=== PATIENT | female | born 1985 | race Hispanic/Latino ===

== ENCOUNTER 2024-05-20 09:25 | Outpatient (CLI) | payer OTHER, SELFPAY ==
[2024-05-20 10:52] LABS: Hemoglobin A1C 5.8 % (<5.7)
== END 2024-05-20 09:26 | disposition home or self-care (01) ==
PROVIDERS: Visit Provider Obstetrics & Gynecology Gynecology
DX: N91.2 Amenorrhea, unspecified (principal)
CPT/HCPCS: 36415; 83036

== ENCOUNTER 2024-06-17 09:58 | Outpatient (CLI) | payer OTHER, SELFPAY ==
[2024-06-17 10:27] LABS: Alanine Aminotransferase 87 U/L (6-35); Albumin Level 4.7 g/dL (3.5-5.1); Alkaline Phosphatase 119 U/L (38-126); Anion Gap 4 mmol/L (4-12); Aspartate Amino Transferase 74 U/L (14-36); Bilirubin,Total 0.5 mg/dL (0.2-1.3); Blood Urea Nitrogen 10 mg/dL (7-17); Calcium 8.8 mg/dL (8.4-10.2); Carbon Dioxide 28 mmol/L (22-30); Chloride 107 mmol/L (98-107); Cholesterol 214 mg/dL (0-200); Estimated Glomerular Filt Rate > 60; Glucose 95 mg/dL (65-110); HDL Direct 56 mg/dL; Potassium 4.1 mmol/L (3.4-5.0); Sodium 139 mmol/L (137-145); Triglycerides 171 mg/dL (<150)
[2024-06-17 10:39] LABS: LDL Cholesterol Direct 115 mg/dL
[2024-06-20 09:14] LABS: Progesterone <0.5 ng/mL
[2024-06-21 15:32] LABS: Zinc 74 mcg/dL (60-130)
== END 2024-06-17 09:59 | disposition home or self-care (01) ==
LOC: ANHLAB 10:00
PROVIDERS: Visit Provider Nurse Practitioner Women's Health
DX: E28.2 Polycystic ovarian syndrome (principal)
CPT/HCPCS: 36415; 80053; 80061; 84144; 84630

== ENCOUNTER 2025-01-22 10:27 | Outpatient (CLI) | payer OTHER, SELFPAY ==
--- NOTE | ~2025-01-22 | XR_ITS ---
Right foot Technique: AP, oblique, and lateral views were obtained. Clinical History: Arthritis Findings: No acute fracture or dislocation is seen. Osseous alignment is anatomic. Joint spaces are p reserved without erosive or degenerative change. Soft tissues are unremarkable. Impression: Unremarkable right foot radiographs. Reviewed, dictated and finalized at location . Impression: Unremarkable right foot radiographs.
--- NOTE | ~2025-01-22 | XR_ITS ---
Left Hand Technique: PA, oblique, and lateral views were obtained. Clinical History: Arthritis Findings: No acute fracture or dislocation is seen. Osseous alignment is anatomic. Joint spaces are p reserved. Soft tissues are unremarkable. Impression: Unremarkable left hand. Reviewed, dictated and finalized at location M. Impression: Unremarkable left hand.
--- NOTE | ~2025-01-22 | XR_ITS ---
Right Hand Technique: PA, oblique, and lateral views were obtained. Clinical History: Arthritis Findings: No acute fracture or dislocation is seen. Osseous alignment is anatomic. Joint spaces are p reserved. Soft tissues are unremarkable. Impression: Unremarkable right hand. Reviewed, dictated and finalized at location M. Impression: Unremarkable right hand.
--- NOTE | ~2025-01-22 | XR_ITS ---
Left foot Technique: AP, oblique, and lateral views were obtained. Clinical History: Arthritis Findings: No acute fracture or dislocation is seen. Osseous alignment is anatomic. Joint spaces are p reserved without erosive or degenerative change. Soft tissues are unremarkable. Impression: Unremarkable left foot radiographs. Reviewed, dictated and finalized at location . Impression: Unremarkable left foot radiographs.
--- OUTSIDE RECORDS SUMMARY | 2025-01-22 10:33 | XMS_ITS | Data Portability ---
Author Organization [facility] NBAWilli Patterson Address [address] [place] [address] Care Team Providers Care Avionics Installer Name Role Phone RICHY, JENNIFER Primary Care Provider [phone] Assessment No assessment recorded. Plan of Treatment Reminders Order Date Submit Date Provider Last Modified By Organization Details Last Modified Time Details Appointments None recorded. Lab CMP, serum or plasma 2019 020 [facility], [address], [address], [place], [address], 0 06:11:28 test, urine 2019 020 [email or web address] In-Office Order, Internal Use Only DO Not Attach Compendium DO Not Attach Compendium, Do Not Delete/merge, [id number] 0 09:14:46 HCG, intact + beta subunit, quant, serum or plasma 2019 020 [facility], [address], [place], [address], 0 06:11:31 lh + FSH, serum 2019 020 [facility], [address], [address], [place], [address], 0 06:11:29 TSH, ultra-sen sitive, serum 2019 020 [facility], [address] [facility], [address], [place], [address], 0 06:11:32 testoster one, total, serum 2019 020 [facility] (Centralized Electronic Ordering - All Locations), Patient Can Go To The Location Of Their Choice, 0 06:11:30 HbA1c (hemoglob in A1c), blood 2019 020 [facility], [address], [place], [address], 0 06:11:29 vitamin D, 25-hydrox y, total, serum 2019 [facility], [address], [place], [address], 0 06:11:31 test, urine 2018 019 [email or web address] In-Office Order, Internal Use Only DO Not Attach Compendium DO Not Attach Compendium, Do Not Delete/merge, 9 18:39:39 pap, IG + HPV, cervical 2018 019 [facility], [address] [facility] [address] [facility], [address], [place], [address], 9 20:07:29 urinalysi s, dipstick 2018 [facility], Internal Use Only DO Not Attach Compendium DO Not Attach Compendium, Do Not Delete/merge, 9 18:39:39 bacterial vaginosis panel, vaginal 2018 019 [facility] - [facility]), Patient Can Go To The Location Of Their Choice, [address] 9 06:05:50 culture, vaginal/r ectal, streptoco ccus group B 2018 019 [facility] (Centralized Electronic Ordering - All Locations), Patient Can Go To The Location Of Their Choice, [address] 9 06:05:50 pap, IG + HPV, cervical 2014 015 [facility], [address], [address], [place], [place], [address], 5 06:10:31 bacterial vaginosis + vaginitis panel, vaginal 2014 015 [facility], [address], [address], [place], [address], 5 20:15:25 HSV (1+2) DNA, qual, PCR, unspecifi ed specimen 2014 015 [facility], [address], [address], [place], [place], [address], 5 20:15:25 culture, vaginal/r ectal, streptoco ccus group B 2014 015 [facility], [address], [address], [place], [address], 5 20:15:25 test, urine 2014 015 [email or web address] In-Office Order, Internal Use Only DO Not Attach Compendium DO Not Attach Compendium, Do Not Delete/merge, [id number] 5 16:26:42 TSH, serum or plasma 2014 015 [email or web address] [facility], [address], [address], [place], [address], 5 09:24:52 testoster one, total, serum 2014 015 [email or web address] [facility], [address], [address], [place], [address], 5 09:24:52 dhea-sulf ate, serum 2014 015 [facility], [address], [address], [place], [address], 5 10:50:29 lipid panel, serum 2014 015 [facility], [address], [address], [place], [address], 5 10:50:28 HbA1c (hemoglob in A1c), blood 2014 015 [facility], [address], [address], [place], [address], 5 10:50:29 CMP, serum or plasma 2014 015 [facility], [address] [facility] [address], [address], [place], [address], 5 10:50:28 RPR (rapid plasma reagin), serum 2014 015 [facility], [address], [address], [place], [address], 5 10:50:28 hsv-2 (herpes simplex virus type 2) igg Ab, serum 2014 015 [facility] TRU[facility], [address] [facility] [address], [address], [place], [address], 5 10:50:28 hepatitis panel (A+B+C), acute, serum 2014 015 [facility], [address], [address], [place], [address], 5 10:50:28 hepatitis B surface Ab, qualitati ve, serum 2014 015 [facility], [address] [facility] [facility] [address] [facility] [address], [address], [place], [address], 5 10:50:28 HIV (1+O+2) Ab, serum 2014 015 [facility], [address] [facility] [facility] [address] [facility] [address], [address], [place], [address], 5 10:50:28 Referral infertili ty reproduct brandon endocrino logy referral 2015 016 [email or web address] Bruno Lancaster MD, [address] [facility] [address], [address], [place], [address], 6 16:52:01 Procedures None recorded. Surgeries None recorded. Imaging hysterosa lpingogra m [address] [facility] ([facility]), [address] [facility], [place], [address], 5 15:56:02 Medication Orders progester one micronize d 200 mg capsule 2019 020 [id number], [address], [place], [place], [id number], 0 17:27:08 metformin 500 mg tablet 2019 020 [facility], [address], [place], [place], [id number], 0 17:26:31 omeprazol e 20 mg capsule,d elayed release 2019 020 [facility], [address], [place], [place], [id number], 0 09:14:54 multivita min tablet 2018 019 [facility]19, [address], [place], [place], [id number], 0 08:46:42 Calcium with Vitamin D 600 mg-10 mcg (400 unit) tablet 2018 019 [facility]09621, [address], [place], [place], [id number], 0 08:46:28 letrozole 2.5 mg tablet [address] [facility], [address] [place] [address], [address], 9 16:59:07 metformin 500 mg tablet [address] [facility], [address] [place] [address], [address], 9 16:59:03 Vitamin tablet [address] [facility], [address] [place] [address], [address], 9 16:59:11 Prometriu m 200 mg capsule [address] [facility], [address] [place] [address], [address], 9 16:59:18 Patient TargetsNo targets recorded. 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 Referring Physician: Lv Thao, CARPENTRY SPECIALIST, Encounter Date: 12/16/2015 Results Created Date Observation Date Name Description Value Unit Range Abnormal Flag Note LastModifiedBy Organization Detail LastModifiedTime 03/28/2003/28/2019 urina lysis , dipst ick Leukocytes Negati ve Not Available In-Office Order Internal Use Only DO Not Attach Compendium DO Not Attach Compendium, Do Not Delete/merge, 03/28/2019 14:26:15 03/28/2003/28/2019 urina lysis , dipst ick Nitrite negati ve Not Available In-Office Order Internal Use Only DO Not Attach Compendium DO Not Attach Compendium, Do Not Delete/merge, 03/28/2019 14:26:15 03/28/2003/28/2019 urina lysis , dipst ick Urobilinogen .2 Not Available In-Of fice Order Internal Use Only DO Not Attach Compendium DO Not Attach Compendium, Do Not Delete/merge, 03/28/2019 14:26:15 03/28/2003/28/2019 urina lysis , dipst ick Protein Negati ve Not Available In-Office Order Internal Use Only DO Not Attach Compendium DO Not Attach Compendium, Do Not Delete/merge, 03/28/2019 14:26:15 03/28/2003/28/2019 urina lysis , dipst ick pH 6.0 Not Available In-Office Order Internal Use Only DO Not Attach Compendium DO Not Attach Compendium, Do Not Delete/merge, 03/28/2019 14:26:15 03/28/2003/28/2019 urina lysis , dipst ick Blood Hemoly zed: Trace Not Available In-Office Order Internal Use Only DO Not Attach Compendium DO Not Attach Compendium, Do Not Delete/merge, 03/28/2019 14:26:15 03/28/2003/2803/28/2019 urina lysis , dipst ick Specific Compton 1.010 Not Available In-Off ice Order Internal Use Only DO Not Attach Compendium DO Not Attach Compendium, Do Not Delete/merge, [id number] 03/28/2019 14:26:15 03/28/20 19 03/28/2019 urina lysis , dipst ick Ketone Negati ve Not Available In-Office Order Internal Use Only DO Not Attach Compendium DO Not Attach Compendium, Do Not Delete/merge, [facility] 03/28/2019 14:26:15 03/28/20 19 03/28/2019 urina lysis , dipst ick Bilirubin Negati ve Not Available In-Office Order Internal Use Only DO Not Attach Compendium DO Not Attach Compendium, Do Not Delete/merge, [facility] 03/28/2019 14:26:15 03/28/20 19 03/28/2019 urina lysis , dipst ick Glucose Negati ve Not Available In-Office Order Internal Use Only DO Not Attach Compendium DO Not Attach Compendium, Do Not Delete/merge, [facility] 03/28/2019 14:26:15 03/28/20 19 03/28/2019 pregn bryce test, urine HCG negati ve Not Available In-Office Order Internal Use Only DO Not Attach Compendium DO Not Attach Compendium, Do Not Delete/merge, [id number] 03/28/2019 14:26:00 02/15/20 15 02/14/2015 pregn bryce test, urine HCG negati ve Not Available In-Office Order Internal Use Only DO Not Attach Compendium DO Not Attach Compendium, Do Not Delete/merge, [id number] 02/14/2015 14:44:28 02/15/20 15 02/15/2015 HbA1c (hemo globi n A1c), blood hemoglobin A1C 5.3 % 4.8-5. 6 INCRE ASED RISK FOR DIABE THALIA: 5.7 - 6.4 DIABE THALIA: >6.4 GLYCE PJ CONTR OL FOR ADULT S WITH DIABE THALIA: <7.0 Not Available [facility] ([facility]) [address] [facility], [place], [address], 02/15/2015 10:38:33 02/15/20 15 02/18/2015 pap, IG + HPV, cervi long diagnosis: CAMILA TAYLOR FOR INTRA EPITH ELIAL LESIO N AND LANCE PARKS . Not Available [facility] ([facility]) [address] [facility], [place], [address], 02/20/2015 06:10:30 02/15/2002/18/2015 pap, IG + HPV, cervi long specimen adequacy: CAMILA T SATIS FACTO RY FOR EVALU ATION . ENDOC ERVIC AL AND/O R SQUAM OUS METAP LASTI C CELLS (ENDO CERVI LONG COMPO NENT) ARE PRESE NT. Not Available [facility] ([facility]) [address] [facility], [place], [address], 02/20/2015 06:10:30 02/15/20 15 02/18/2015 pap, IG + HPV, cervi long clinician provided ICD9: CAMILA Orosco V72.3 1 ; HARRIS HENRY GYNEC OLOGI LONG EXAMI NATIO N Not Available [facility] ([facility]) [address] [facility], [place], [address], 02/20/2015 06:10:30 02/15/20 15 02/18/2015 pap, IG + HPV, cervi long performed by: CAMILA METZGER , NEVAEH Orosco (ASCP ) Not Available [facility] ([facility]) [address] [place], [address], 02/20/2015 06:10:30 02/15/2002/18/2015 pap, IG + HPV, cervi long . . Not Available [facility] ([facility]) [address] [place], [address], 02/20/2015 06:10:30 02/15/20 15 02/18/2015 pap, IG + HPV, cervi long note: CAMILA Orosco THE PAP SMEAR IS A SCREE BUTCH TEST DESMILTON MAR TO AID IN THE DETEC TION OF SUKHI LIGNA NT AND MALIG NANT CONDI TIONS OF THE UTERI NE CERVI X. IT IS NOT A DIAGN OSTIC PROCE DURE AND SHOUL D NOT BE USED THE SOLE MEANS OF DETEC TING CERVI LONG CANCE R. BOTH FALSE -POSI TIVE AND FALSE -NEGA TIVE REPOR TS DO OCCUR . Not Available [facility] ([facility]) [address] [place], [address], 02/20/2015 06:10:30 02/15/20 15 02/18/2015 pap, IG + HPV, cervi long test methodology: COMMEN T THIS LIQUI D BASED THINP REP(R ) PAP TEST WAS SCREE CORY WITH THE USE OF AN IMAGE GUIDE Sugar Eaton. Not Available [facility] ([facility]) [address] [place], [address], 02/20/2015 06:10:30 02/15/20 15 02/19/2015 pap, IG + HPV, cervi long HPV aptima NEGATI VE negati ve THIS TEST DETEC TS FOURT EEN HIGH- RISK HPV TYPES (16/1 8/31/ 33/35 /39/4 5/ 51/52 /56/5 8/59/ 66/68 ) WITHO UT DIFFE RENTI ATION . Not Available [facility] ([facility]) [address] [place], [address], 02/20/2015 06:10:30 02/15/20 15 02/20/2015 bacte rial vagin osis + vagin itis panel , vagin al atopobium vaginae LOW - 0 score Not Available [facility] ([facility]) [address] [place], [address], 02/20/2015 20:15:25 02/15/20 15 02/20/2015 bacte rial vagin osis + vagin itis panel , vagin al bvab 2 LOW - 0 score Not Available [facility] ([facility]) [address] [place], [address], 02/20/2015 20:15:25 02/15/20 15 02/20/2015 bacte rial vagin osis + vagin itis panel , vagin al megasphaera 1 LOW - 0 score CALCU LATE TOTAL SCORE BY LILLIE Pereira THE 3 INDIV IDUAL BACTE RIAL VAGIN OSIS (BV) MARKE R SCORE S TOGET HER. TOTAL SCORE IS INTER PRETE D FOLLO WS: TOTAL SCORE 0-1: INDIC ATES THE ABSEN CE OF BV. TOTAL SCORE 2: INDET ERMIN ATE FOR BV. ADDIT IONAL CLINI LONG DATA SHOUL D BE EVALU ATED TO ESTAB JEFFREY A DIAGN OSIS. TOTAL SCORE 3-6: INDIC ATES THE PRESE NCE OF BV. THIS TEST WAS DEVEL OPED AND ITS PERFO RMANC E DOMENICO CTERI STICS DETER MINED BY [employer]. IT HAS NOT BEEN CLEAR ED OR APPRO MARIA DEL CARMEN BY THE FOOD AND DRUG ADMIN ISTRA TION. THE FDA HAS DETER MINED THAT SUCH CLEAR ANCE OR APPRO EDUARDO IS NOT NECES KERRY. Not Available [facility] ([facility]) [address] [place], [address], 02/20/2015 20:15:25 02/15/20 15 02/20/2015 bacte rial vagin osis + vagin itis panel , vagin al refugio albicans, FRANCISCO NEGATI VE negati ve Not Available [facility] ([facility]) [address] [place], [address], 02/20/2015 20:15:25 02/15/20 15 02/20/2015 bacte rial vagin osis + vagin itis panel , vagin al refugio glabrata, FRANCISCO NEGATI VE negati ve THIS TEST WAS DEVEL OPED AND ITS PERFO RMANC E DOMENICO CTERI STICS DETER MINED BY [employer]. IT HAS NOT BEEN CLEAR ED OR APPRO MARIA DEL CARMEN BY THE FOOD AND DRUG ADMIN ISTRA TION. THE FDA HAS DETER MINED THAT SUCH CLEAR ANCE OR APPRO EDUARDO IS NOT NECES KERRY. Not Available [facility] ([facility]) [address] [place], [address], 02/20/2015 20:15:25 02/15/20 15 02/20/2015 bacte rial vagin osis + vagin itis panel , vagin al trich vag by FRANCISCO NEGATI VE negati ve Not Available [facility] ([facility]) [address] [place], [address], 02/20/2015 20:15:25 02/15/20 15 02/20/2015 bacte rial vagin osis + vagin itis panel , vagin al chlamydia trachomatis, FRANCISCO NEGATI VE negati ve Not Available [facility] ([facility]) [address] [place], [address], 02/20/2015 20:15:25 02/15/20 15 02/20/2015 bacte rial vagin osis + vagin itis panel , vagin al neisseria gonorrhoeae, FRANCISCO NEGATI VE negati ve Not Available [facility] ([facility]) [address] [place], [address], 02/20/2015 20:15:25 02/15/20 15 02/16/2015 HSV (1+2) DNA, qual, PCR, unspe cifie d speci men hsv 1 FRANCISCO NEGATI VE negati ve Not Available [facility] ([facility]) [address] [place], [address], 02/20/2015 20:15:25 02/15/20 15 02/16/2015 HSV (1+2) DNA, qual, PCR, unspe cifie d speci men hsv 2 FRANCISCO NEGATI VE negati ve Not Available [facility] ([facility]) [address] [place], [address], 02/20/2015 20:15:25 02/15/20 15 02/16/2015 cultu re, vagin al/re ctal, strep tococ cus group B strep gp B FRANCISCO NEGATI VE negati ve PENIC ILLIN G, AMPIC ILLIN , OR CEFAZ ANNALISA ARE INDIC ATED FOR INTRA PARTU M PROPH YLAXI S OF PERIN ATAL GROUP B STREP (GBS) COLON IZATI ON. REFLE X SUSCE PTIBI LITY TESTI NG SHOUL D BE PERFO RMED PRIOR TO USE OF CLIND AMYCI N ONLY ON GBS ISOLA THALIA FROM [facility]ENIC [facility] [facility] WOMEN WHO ARE CONSI DERED A HIGH RISK FOR ANAPH YLAXI S. TREAT MENT WITH VANCO MYCIN WITHO UT ADDIT IONAL TESTI NG IS WARRA NTED IF RESIS TANCE TO CLIND AMYCI N IS NOTED . (CDC GUIDE LINES , MMWR, 2009) Not Available [facility] ([facility]) [address] [facility], [place], [address], 02/20/2015 20:15:25 02/15/20 15 02/15/2015 dhea- sulfa te, serum DHEA-sulfate 330.5 ug/dL 84.8-3 78.0 Not Available [facility] ([facility]) [address] [facility], [place], [address], 02/15/2015 10:38:32 02/15/20 15 02/15/2015 hepat itis B surfa ce Ab, quali tativ e, serum hep B surface Ab, qual REACTI VE NON REACT BRANDON: INCON SISTE NT WITH IMMUN ITY, LESS THAN 10 MIU/M L REACT BRANDON: CONSI STENT WITH IMMUN ITY, GREAT ER THAN 9.9 MIU/M L Not Available [facility] ([facility]) [address] [facility], [place], [address], 02/15/2015 10:38:32 02/15/20 15 02/15/2015 hsv-2 (herp es simpl ex virus type 2) igg Ab, serum hsv 2 IgG, type spec <0.91 index 0.00-0 .90 NEGAT BRANDON <0.91 EQUIV OCAL 0.91 - 1.09 POSIT BRANDON >1.09 NOTE: NEGAT BRANDON INDIC ATES NO ANTIB ODIES DETEC KEV TO HSV-2 . EQUIV OCAL MAY SUGGE ST EARLY INFEC TION. IF CLINI CAMERON APPRO PRIAT E, RETES T AT LATER DATE. POSIT BRANDON INDIC ATES ANTIB ODIES DETEC KEV TO HSV-2 . Not Available [facility] ([facility]) [address] [facility], [place], [address], 02/15/2015 10:38:32 02/15/20 15 02/15/2015 RPR (rapi d plasm a reagi n), serum RPR NON REACTI VE non reacti ve Not Available [facility] ([facility]) [address] [facility], [place], [address], 02/15/2015 10:38:32 02/15/20 15 02/15/2015 HIV (1+O+ 2) Ab, serum HIV 1/O/2 abs-index value <1.00 <1.00 INDEX VALUE : SPECI MEN REACT IVITY RELAT BRANDON TO THE NEGAT BRANDON CUTOF F. Not Available [facility] ([facility]) [address] [facility], [place], [address], 02/15/2015 10:38:31 02/15/20 15 02/15/2015 HIV (1+O+ 2) Ab, serum HIV 1/O/2 abs, qual NON REACTI VE non reacti ve Not Available [facility] ([facility]) [address] [place], [address], 02/15/2015 10:38:31 02/15/20 15 02/15/2015 hepat itis panel (A+B+ C), acute , serum hep A Ab, IgM NEGATI VE negati ve Not Available [facility] ([facility]) [address] [place], [address], 02/15/2015 10:38:31 02/15/20 15 02/15/2015 hepat itis panel (A+B+ C), acute , serum HBsAg screen NEGATI VE negati ve Not Available [facility] ([facility]) [address] [place], [address], 02/15/2015 10:38:31 08/06/20 15 02/15/2015 hepat itis panel (A+B+ C), acute , serum hep B core Ab, IgM NEGATI VE negati ve Not Available [facility] ([facility]) [address] [facility], [place], [address], 02/15/2015 10:38:31 02/15/20 15 02/15/2015 hepat itis panel (A+B+ C), acute , serum hep C virus Ab <0.1 S/co_ ratio 0.0-0. 9 NEGAT BRANDON: < 0.8 INDET ERMIN ATE: 0.8 - 0.9 POSIT BRANDON: > 0.9 IN ORDER TO REDUC E THE INCID ENCE OF A FALSE POSIT BRANDON RESUL T, THE [facility] RECOM MENDS THAT ALL S/CO RATIO S BETWE EN 1.0 AND 10.9 BE CONFI RMED BY A MORE SPECI FIC SUPPL EMENT AL OR PCR TESTI NG. [facility] OFFER S HCV AB W/REF RYAN TO NAILA MAGDALENOTI ON TEST #[id number] 65. Not Available [facility] ([facility]) [address] [facility], [place], [address], 02/15/2015 10:38:31 02/15/20 15 02/15/2015 lipid panel , serum cholesterol, total 211 mg/dL 100-19 9 above high normal Not Available [facility] ([facility]) [address] [place], [address], 02/15/2015 10:38:31 02/15/20 15 02/15/2015 lipid panel , serum triglyceride s 228 mg/dL 0-149 above high normal Not Available [facility] ([facility]) [address] [place], [address], 02/15/2015 10:38:31 02/15/20 15 02/15/2015 lipid panel , serum HDL cholesterol 80 mg/dL >39 ACCOR DING TO ATP-I II GUIDE LINES , HDL-C >59 MG/DL IS CONSI DERED A NEGAT BRANDON RISK FACTO R FOR CHD. Not Available [facility] ([facility]) [address] [place], [address], 02/15/2015 10:38:31 02/15/20 15 02/15/2015 lipid panel , serum VLDL cholesterol long 46 mg/dL 5-40 above high normal Not Available [facility] ([facility]) [address] [facility] [place], [address], 02/15/2015 10:38:31 02/15/20 15 02/15/2015 lipid panel , serum LDL cholesterol calc 85 mg/dL 0-99 Not Available [facility] ([facility]) [address] [facility] [place], [address], 02/15/2015 10:38:31 02/15/20 15 02/15/2015 lipid panel , serum comment: WAXER TENDER Not Available [facility] ([facility]) [address] [facility] [place], [address], 02/15/2015 10:38:31 02/15/20 15 02/15/2015 lipid panel , serum LDL/HDL ratio 1.1 ratio _unit s 0.0-3. 2 LDL/H DL RATIO MEN WOMEN 1/2 AVG.R ISK 1.0 1.5 AVG.R ISK 3.6 3.2 2X AVG.R ISK 6.2 5.0 3X AVG.R ISK 8.0 6.1 Not Available [facility] ([facility]) [address] [facility] [place], [address], 02/15/2015 10:38:31 02/15/20 15 02/15/2015 CMP, serum or plasm a glucose, serum 82 mg/dL 65-99 Not Available [facility] ([facility]) [address] [facility] [place], [address], 02/15/2015 10:38:31 02/15/20 15 02/15/2015 CMP, serum or plasm a BUN 14 mg/dL 6-20 Not Available [facility] ([facility]) [address] [facility], [address], 02/15/2015 10:38:31 02/15/20 15 02/15/2015 CMP, serum or plasm a creatinine, serum 0.54 mg/dL 0.57-1 .00 below low normal Not Available [facility] ([facility]) [address] [facility] [place], [address], 02/15/2015 10:38:31 02/15/20 15 02/15/2015 CMP, serum or plasm a eGFR if nonafricn AM 128 mL/mi n/1.7 3 >59 Not Available [facility] ([facility]) [address] [facility] [place], [address], 02/15/2015 10:38:31 02/15/20 15 02/15/2015 CMP, serum or plasm a eGFR if africn AM 147 mL/mi n/1.7 3 >59 Not Available [facility] ([facility]) [address] [facility] [place], [address], 02/15/2015 10:38:31 02/15/20 15 02/15/2015 CMP, serum or plasm a BUN/creatini ne ratio 26 8-20 above high normal Not Available [facility] ([facility]) [address] [facility] [place], [address], 02/15/2015 10:38:31 02/15/20 15 02/15/2015 CMP, serum or plasm a sodium, serum 144 mmol/ L 134-14 4 Not Available [facility] ([facility]) [address] [facility] [place], [address], 02/15/2015 10:38:31 02/15/20 15 02/15/2015 CMP, serum or plasm a potassium, serum 3.8 mmol/ L 3.5-5. 2 Not Available [facility] ([facility]) [address] [facility] [place], [address], 02/15/2015 10:38:31 02/15/20 15 02/15/2015 CMP, serum or plasm a chloride, serum 102 mmol/ L 97-108 Not Available [facility] ([facility]) [address] [facility] [place], [address], 02/15/2015 10:38:31 02/15/20 15 02/15/2015 CMP, serum or plasm a carbon dioxide, total 23 mmol/ L 18-29 Not Available [facility] ([facility]) [address] [facility] [place], [address], 02/15/2015 10:38:31 02/15/20 15 02/15/2015 CMP, serum or plasm a calcium, serum 10.1 mg/dL 8.7-10 .2 Not Available [facility] ([facility]) [address] [facility] [place], [address], 02/15/2015 10:38:31 02/15/20 15 02/15/2015 CMP, serum or plasm a protein, total, serum 8.1 g/dL 6.0-8. 5 Not Available [facility] ([facility]) [address] [facility] [place], [address], 02/15/2015 10:38:31 02/15/20 15 02/15/2015 CMP, serum or plasm a albumin, serum 4.8 g/dL 3.5-5. 5 Not Available [facility] ([facility]) [address] [place], [address], 02/15/2015 10:38:31 02/15/20 15 02/15/2015 CMP, serum or plasm a globulin, total 3.3 g/dL 1.5-4. 5 Not Available [facility] ([facility]) [address] [place], [address], 02/15/2015 10:38:31 02/15/20 15 02/15/2015 CMP, serum or plasm a A/G ratio 1.5 1.1-2. 5 Not Available [facility] ([facility]) [address] [facility] [place], [address], 02/15/2015 10:38:31 02/15/20 15 02/15/2015 CMP, serum or plasm a bilirubin, total 0.3 mg/dL 0.0-1. 2 Not Available [facility] ([facility]) [address] [facility], [place], [address], 02/15/2015 10:38:31 02/15/20 15 02/15/2015 CMP, serum or plasm a alkaline phosphatase, S 73 IU/L 39-117 Not Available [facility] ([facility]) [address] [facility], [place], [address], 02/15/2015 10:38:31 02/15/20 15 02/15/2015 CMP, serum or plasm a AST (SGOT) 28 IU/L 0-40 Not Available [facility] ([facility]) [address] [facility], [place], [address], 02/15/2015 10:38:31 02/15/20 15 02/15/2015 CMP, serum or plasm a ALT (SGPT) 20 IU/L 0-32 Not Available [facility] ([facility]) [address] [facility], [place], [address], 02/15/2015 10:38:31 03/28/20 19 03/30/2019 pap, IG + HPV, cervi long diagnosis: COMMEN T DHAVAL TAYLOR FOR INTRA EPITH ELIAL YENI Painting OR LANCE PARKS . Not Available [facility] ([facility]) [address] [place], [address], 04/01/2019 20:07:29 03/28/2003/30/2019 pap, IG + HPV, cervi long specimen adequacy: COMMEN T Satis facto ry for evalu ation . Endoc ervic al and/o r squam ous metap lasti c cells (endo cervi long compo nent) are prese nt. Not Available [facility] ([facility]) [address] [facility], [place], [address], 04/01/2019 20:07:29 03/28/20 19 03/30/2019 pap, IG + HPV, cervi long clinician provided ICD10: CAMILA Orosco Z01.4 19 Not Available [facility] ([facility]) [address] [facility], [place], [address], 04/01/2019 20:07:29 03/28/20 19 03/30/2019 pap, IG + HPV, cervi long performed by: CAMILA fernandez, Cytot zachary orosco (ASCP ) Not Available [facility] ([facility]) [address] [place], [address], 04/01/2019 20:07:29 03/28/20 19 03/30/2019 pap, IG + HPV, cervi long . . Not Available [facility] ([facility]) [address] [facility], [place], [address], 04/01/2019 20:07:29 03/28/20 19 03/30/2019 pap, IG + HPV, cervi long note: CAMILA Orosco The Pap smear is a scree butch test desig cory to aid in the detec tion of sukhi ligna nt and malig nant condi tions of the uteri ne cervi x. It is not a diagn ostic proce dure and shoul d not be used as the sole means of detec ting cervi long cance r. Both false -posi tive and false -nega tive repor ts do occur . Not Available [facility] ([facility]) [address] [facility], [place], [address], 04/01/2019 20:07:29 03/28/20 19 03/30/2019 pap, IG + HPV, cervi long test methodology: CAMILA Orosco This liqui d based ThinP rep(R ) pap test was scree cory with the use of an image guide sugar systadrien eaton. Not Available [facility] ([facility]) [address] [facility], [place], [address], 04/01/2019 20:07:29 03/28/20 19 04/01/2019 pap, IG + HPV, cervi long HPV aptima NEGATI VE negati ve This test detec ts fourt een high- risk HPV types (16/1 8/31/ 33/35 /39/4 5/ 51/52 /56/5 8/59/ 66/68 ) witho vida cespedes . Not Available [facility] ([facility]) [address] [facility], [place], [address], 04/01/2019 20:07:29 03/28/2003/31/2019 bacte rial vagin osis panel , vagin al trich vag by FRANCISCO NEGATI VE negati ve Not Available [facility] ([facility]) [address] [place], [address], 04/02/2019 06:05:49 03/28/2003/31/2019 bacte rial vagin osis panel , vagin al chlamydia trachomatis, FRANCISCO NEGATI VE negati ve Not Available [facility] ([facility]) [address] [place], [address], 04/02/2019 06:05:49 03/28/20 19 03/31/2019 bacte rial vagin osis panel , vagin al neisseria gonorrhoeae, FRANCISCO NEGATI VE negati ve Not Available [facility] ([facility]) [address] [place], [address], 04/02/2019 06:05:49 03/28/2004/01/2019 bacte rial vagin osis panel , vagin al atopobium vaginae LOW - 0 score Not Available [facility] ([facility]) [address] [place], [address], 04/02/2019 06:05:49 03/28/20 19 04/01/2019 bacte rial vagin osis panel , vagin al bvab 2 LOW - 0 score Not Available [facility] ([facility]) [address] [place], [address], 04/02/2019 06:05:49 03/28/2004/01/2019 bacte rial vagin osis panel , vagin al megasphaera 1 LOW - 0 score Calcu late total score by lillie pereira the 3 indiv idual bacte rial vagin osis (BV) marke r score s toget her. Total score is inter prete d as follo ws: Total score 0-1: Indic ates the absen ce of BV. Total score 2: Indet ermin ate for BV. Addit ional clini long data shoul d be evalu ated to estab jeffrey a diagn osis. Total score 3-6: Indic ates the prese nce of BV. This test was devel oped and its perfo rmanc e domenico cteri stics deter mined by [employer]. It has not been clear ed or appro maria del carmen by the Food and Drug Admin istra tion. The FDA has deter mined that such clear ance or appro eduardo is not neces kerry. Not Available [facility] ([facility]) [address] [place], [address], 04/02/2019 06:05:49 03/28/2004/01/2019 bacte rial vagin osis panel , vagin al refugio albicans, FRANCISCO NEGATI VE negati ve Not Available [facility] ([facility]) [address] [place], [address], 04/02/2019 06:05:49 03/28/2004/01/2019 bacte rial vagin osis panel , vagin al refugio glabrata, FRANCISCO NEGATI VE negati ve This test was devel oped and its perfo rmanc e domenico cteri stics deter mined by [employer]. It has not been clear ed or appro maria del carmen by the Food and Drug Admin istra tion. The FDA has deter mined that such clear ance or appro eduardo is not neces kerry. Not Available [facility] ([facility]) [address] [facility], [place], [address], 04/02/2019 06:05:49 03/28/2004/01/2019 bacte rial vagin osis panel , vagin al hsv 1 FRANCISCO NEGATI VE negati ve Not Available [facility] ([facility]) [address] [facility], [place], [address], 04/02/2019 06:05:49 03/28/20 19 04/01/2019 bacte rial vagin osis panel , vagin al hsv 2 FRANCISCO NEGATI VE negati ve Not Available [facility] ([facility]) [address] [facility], [place], [address], 04/02/2019 06:05:49 03/28/2003/30/2019 cultu re, vagin al/re ctal, strep tococ cus group B strep gp B FRANCISCO NEGATI VE negati ve Cente rs for Disea se Contr ol and Preve ntion (CDC) and Ameri can Congr ess of Obste trici ans and Gynec ologi sts (ACOG ) guide lines for preve ntion of perin atal group B strep tococ long (GBS) disea se speci fy co-co llect ion of a vagin al and recta l swab speci men to maxim ize sensi tivit y of GBS detec tion. Per the CDC and ACOG, swabb ing both the lower vagin a and rectu m subst antia lly incre ases the yield of detec tion michelle red with sampl ing the vagin a alone . Penic illin G, ampic illin , or cefaz annalisa are indic ated for intra partu m proph ylaxi s of perin atal GBS colon izati on. Refle x susce ptibi lity testi ng shoul d be perfo rmed prior to use of clind amyci n only on GBS isola thalia from penic illin -china rgic women who are consi dered a high risk for anaph ylaxi s. Treat ment with vanco mycin witho ut addit ional testi ng is fede nted if resis tance to clind amyci n is noted . Not Available [facility] ([facility]) [address] [place], [address], 04/02/2019 06:05:50 10/23/19 20 10/24/2019 CMP, serum or plasm a glucose 88 mg/dL 65-99 Not Available [facility] ([facility]) [address] [place], [address], 10/24/2019 06:11:28 10/23/19 20 10/24/2019 CMP, serum or plasm a BUN 10 mg/dL 6-20 Not Available [facility] ([facility]) [address] [place], [address], 10/24/2019 06:11:28 10/23/19 20 10/24/2019 CMP, serum or plasm a creatinine 0.61 mg/dL 0.57-1 .00 Not Available [facility] ([facility]) [address] [place], [address], 10/24/2019 06:11:28 10/23/19 20 10/24/2019 CMP, serum or plasm a eGFR if nonafricn AM 119 mL/mi n/1.7 3 >59 Not Available [facility] ([facility]) [address] [place], [address], 10/24/2019 06:11:28 10/23/1910/24/2019 CMP, serum or plasm a eGFR if africn AM 137 mL/mi n/1.7 3 >59 Not Available [facility] ([facility]) [address] [place], [address], 10/24/2019 06:11:28 10/23/19 20 10/24/2019 CMP, serum or plasm a BUN/creatini ne ratio 16 9-23 Not Available [facility] ([facility]) [address] [place], [address], 10/24/2019 06:11:28 10/23/1910/24/2019 CMP, serum or plasm a sodium 141 mmol/ L 134-14 4 Not Available [facility] ([facility]) [address] [place], [address], 10/24/2019 06:11:28 10/23/1910/24/2019 CMP, serum or plasm a potassium 4.5 mmol/ L 3.5-5. 2 Not Available [facility] ([facility]) [address] [place], [address], 10/24/2019 06:11:28 10/23/1910/24/2019 CMP, serum or plasm a chloride 102 mmol/ L 96-106 Not Available [facility] ([facility]) [address] [place], [address], 10/24/2019 06:11:28 10/23/1910/24/2019 CMP, serum or plasm a carbon dioxide, total 25 mmol/ L 20-29 Not Available [facility] ([facility]) [address] [place], [address], 10/24/2019 06:11:28 10/23/1910/24/2019 CMP, serum or plasm a calcium 9.5 mg/dL 8.7-10 .2 Not Available [facility] ([facility]) [address] [place], [address], 10/24/2019 06:11:28 10/23/1910/24/2019 CMP, serum or plasm a protein, total 7.7 g/dL 6.0-8. 5 Not Available [facility] ([facility]) [address] [place], [address], 10/24/2019 06:11:28 10/23/1910/24/2019 CMP, serum or plasm a albumin 4.4 g/dL 3.8-4. 8 Not Available [facility] ([facility]) [address] [place] [place], [address], 10/24/2019 06:11:28 10/23/1910/24/2019 CMP, serum or plasm a globulin, total 3.3 g/dL 1.5-4. 5 Not Available [facility] ([facility]) [address] [facility] [place], [address], 10/24/2019 06:11:28 10/23/1910/24/2019 CMP, serum or plasm a A/G ratio 1.3 1.2-2. 2 Not Available [facility] ([facility]) [address] [facility] [place], [address], 10/24/2019 06:11:28 10/23/1910/24/2019 CMP, serum or plasm a bilirubin, total <0.2 mg/dL 0.0-1. 2 Not Available [facility] ([facility]) [address] [facility] [place], [address], 10/24/2019 06:11:28 10/23/1910/24/2019 CMP, serum or plasm a alkaline phosphatase 101 IU/L 39-117 Not Available [facility] ([facility]) [address] [facility] [place], [address], 10/24/2019 06:11:28 10/23/1910/24/2019 CMP, serum or plasm a AST (SGOT) 23 IU/L 0-40 Not Available [facility] ([facility]) [address] [facility] [place], [address], 10/24/2019 06:11:28 10/23/1910/24/2019 CMP, serum or plasm a ALT (SGPT) 22 IU/L 0-32 Not Available [facility] ([facility]) [address] [facility] [place], [address], 10/24/2019 06:11:28 10/23/19 10/24/2019 lh + FSH, serum LH 13.2 mIU/m L Adult Femal e: Folli cular phase 2.4 - 12.6 Ovula tion phase 14.0 - 95.6 Lutea l phase 1.0 - 11.4 Postm enopa usal 7.7 - 58.5 Not Available [facility] ([facility]) [address] [place], [address], 10/24/2019 06:11:29 10/23/19 20 10/24/2019 lh + FSH, serum FSH 6.7 mIU/m L Adult Femal e: Folli cular phase 3.5 - 12.5 Ovula tion phase 4.7 - 21.5 Lutea l phase 1.7 - 7.7 Postm enopa usal 25.8 - 134.8 Not Available [facility] ([facility]) [address] [place], [address], 10/24/2019 06:11:29 10/23/1910/24/2019 HbA1c (hemo globi n A1c), blood hemoglobin A1C 5.7 % 4.8-5. 6 above high normal Predi abete s: 5.7 - 6.4 Diabe thalia: >6.4 Glyce pj contr ol for adult s with diabe thalia: <7.0 Not Available [facility] ([facility]) [address] [place], [address], 10/24/2019 06:11:29 10/23/1910/24/2019 testo stero ne, total , serum testosterone , serum 40 NG/dL 8-48 Not Available [facility] ([facility]) [address] [place], [address], 10/24/2019 06:11:30 10/23/1910/24/2019 HCG, intac t + beta subun it, quant , serum or plasm a HCG,beta subunit,qnt, serum <1 mIU/m L Femal e (Non- pregn ant) 0 - 5 (Post menop ausal ) 0 - 8 Femal e (Preg nant) Weeks of Gesta tion 3 6 - 71 4 10 - 750 5 861 - 5306 6 765 - 82815 7 0862 -4170 63 8 78395 -0878 71 9 071417 -4625 10 10 20582 -4019 77 12 24724 -1336 12 14 48503 - 11104 15 63639 - 01059 16 1067 - 77735 17 5592 - 25443 18 7014 - 78575 Prince ECLIA metho dolog y Not Available [facility] ([facility]) [address] [facility], [place], [address], 10/24/2019 06:11:30 10/23/19 20 10/24/2019 vitam in D, 25-hy droxy , total , serum vitamin D, 25-hydroxy 12.1 NG/mL 30.0-1 00.0 below low normal Vitam in D defic iency has been defin ed by the Insti tute of Medic ine and an Endoc rine Socie ty pract ice guide line as a level of serum 25-OH vitam in D less than 20 ng/mL (1,2) . The Endoc rine Socie ty went on to furth er defin e vitam in D insuf ficie ncy as a level betwe en 21 and 29 ng/mL (2). 1. IOM (Inst itute of Medic ine). 2009. Dieta ry refer ence intak es for calci um and D. Pasquale escamilla [place]: The [facility] Press . 2. Kd brooks [place], Maribeth garcia [place], Otto off-F errar i SNOW, et al. Evalu ation , treat ment, and preve ntion of vitam in D defic iency : an Endoc rine Socie ty clini long pract ice guide line. JCEM. 2010; 96(7) :1911 -30. Not Available [facility] ([facility]) [address] [facility], [place], [address], 10/24/2019 06:11:31 10/23/1910/24/2019 TSH, ultra -sens itive , serum TSH 2.550 uIU/m L 0.450- 4.500 Not Available [facility] ([facility]) [address] [facility], [place], [address], 10/24/2019 06:11:32 10/23/19 20 10/23/2019 pregn bryce test, urine HCG negati ve Not Available In-Office Order Internal Use Only DO Not Attach Compendium DO Not Attach Compendium, Do Not Delete/merge, [id number] 10/23/2019 08:53:49 02/26/20 15 02/25/2015 hyste dillon pingo gram No observ ation record ed. [facility] (Imaging) [address] [place], [address], 02/26/2015 13:28:31 Result Notes None recorded. 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 Procedures Surgical History Date Name Laterality Status Provider Name and Address Organization Details Recorded Time 03/27/2019 Date of Last Pap Smear completed Colette Lux MA [facility] 03/27/2019 16:56:11 Imaging Results None recorded. Procedure Notes None recorded. Medical Equipment None Reported. Allergies Allergen ID Allergen Name Allergen Category Reaction Reaction Severity Criticality Documentation Date Start Date Code Code System Note Provider Name and Address Organization Details Recorded Time 01000 Mucinex medicatio n hives severe Not available 02/14/2015 45772 7 RxNorm Annmarie Julien MA null, [facility] 5 14:44:12 Medications Name Sig Start Date Stop Date Status Note LastModified by Organization Details LastModified Time multivitami n tablet Take 1 tablet every day by oral route. 10/22 completed Not Available Not Available Not Available metformin 500 mg tablet TAKE 1 TABLET BY MOUTH TWICE DAILY active Not Available Not Available No t Available Vitamin tablet Take one po daily 03/27 completed Not Available Not Available Not Available progesteron e micronized 200 mg capsule TAKE 2 CAPSULES BY MOUTH EVERY DAY AT BEDTIME FOR 10 DAYS active Not Available Not Available No t Available omeprazole 20 mg capsule,del ayed release TK 1 C PO QD UTD active Not Available Not Available No t Available ergocalcife rol (vitamin D2) 1,250 mcg (50,000 unit) capsule TK 1 C PO Q WK FOR 56 DAYS UTD active Not Available Not Available No t Available letrozole 2.5 mg tablet Take 1 tablet every day by oral route. 03/27 completed Not Available Not Available Not Available Calcium with Vitamin D 600 mg-10 mcg (400 unit) tablet Take 1 tablet twice a day by oral route. 10/22 completed Not Available Not Available Not Available PrePlus 27 mg iron-1 mg tablet 03/27 completed Not Available Not Available Not Available Vitals Date Recorded Body height Body mass index (BMI) Body weight Heart rate Body temperature Oxygen saturation Oxygen saturation in Arterial blood by Pulse oximetry Systolic And Diastolic Provider Name and Address Organization Details Last Updated DateTime 0 147.32 cm 26.4 kg/m2 68435.0 4 g 70 /min 98.9 [degF] 98 % 98 % 100/72 mm[Hg] Josefa Matute MA [facility] 0 08:46:06 Date Recorded Body weight Body mass index (BMI) Body height Systolic And Diastolic Provider Name and Address Organization Details Last Updated DateTime 12/16/2015 85677.753 07 g 23.2 kg/m2 147.32 cm 90/54 mm[Hg] Josefa Feng MA [facility] S[facility] 12/16/2015 16:52:54 Date Recorded Body height Body mass index (BMI) Body weight Systolic And Diastolic Provider Name and Address Organization Details Last Updated DateTime 02/14/2015 148.59 cm 21.8 kg/m2 52976.791 22 g 92/60 mm[Hg] Annmarie Julien MA [facility] 02/14/2015 14:57:55 Date Recorded Body height Body mass index (BMI) Body weight Systolic And Diastolic Provider Name and Address Organization Details Last Updated DateTime 03/27/2019 147.32 cm 25.7 kg/m2 03143.86 g 110/68 mm[Hg] Colette Lux MA [facility] 03/27/2019 17:02:55 Date Recorded Body height Body mass index (BMI) Body weight Provider Name and Address Organization Details Last Updated DateTime 07/01/2020 147.32 cm 26.1 kg/m2 30812.05 g Colette Lux MA [facility] 07/01/2020 17:14:46 Social History Question Answer Notes LastModified by Organizat ion Details LastModified Time Tobacco Smoking Status Never Smoker Annmarie Julien MA null, [facility] 02/14/2015 14:57:55 Do You Have An Advance Directive? No Information not available 02/14/2015 Is Blood Transfusion Acceptable In An Emergency? Yes Information not available 02/14/2015 What Is Your Level Of Caffeine Consumption? Moderate Information not available 02/14/2015 How Much Tobacco Do You Chew? None Information not available 02/14/2015 What Type Of Diet Are You Following? REGULAR Information not available 02/14/2015 Which Illicit Or Recreational Drugs Have You Used? None Information not available 02/14/2015 Education 12 Information no t available 02/14/2015 Live Alone Or With Others? With Others Information not available 02/14/2015 What Was The Date Of Your Most Recent Tobacco Screening? 07/01/2020 Information not available 07/01/2020 How Many Children Do You Have? 0 Information not available 02/14/2015 Performs Monthly Self-breast Exam? Yes Information no t available 02/14/2015 Do You Use Protection During Sex? No Information not available 02/14/2015 What Is Your Relationship Status? Information not available 02/14/2015 Seat Belts Used Routinely Yes Information not available 02/14/2015 Are You Sexually Active? Yes [email or web address] Information not available 12/16/2015 How Much Tobacco Do You Smoke? No Information not available 02/14/2015 General Stress Level High Information not available 02/14/2015 Do You Use Sunscreen Routinely? No Information not available 02/14/2015 How Many Years Have You Smoked Tobacco? 0 Information not available 02/14/2015 Sex: Unknown Functional Status Question Answer Note LastModified by Organizat ion Details LastModified Time What is your level of alcohol consumption? Occasional Information not available 02/14/2015 Do you or have you ever used smokeless tobacco? Never used smokeless tobacco Information not available 07/01/2020 Are you currently employed? 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 Never used electronic cigarettes Information not available 07/01/2020 What is your exercise level? Occasional Information not available 02/14/2015 Mental Status None recorded. Family History Relationship Description Onset Age of this Age Resolved Age Notes LastModified by Organization Details LastModified Time Father Asthma [email or web address] Not available 12/16/2015 18:20:06 Medical History Condition Response Heart Problems N Other N Breast Cancer N Thyroid Problems N Kidney or Bladder Problems N GI Problems N Lung Disease N Depression N Acne N Eating Disorder N Breast Problem N Anemia N Anesthesia Complications N Headaches/Migraines N Anxiety Disorder N Diabetes N Ovarian Cancer N Blood Transfusions N Arthritis N Polyps N Infertility N Acid Reflux (GERD) N Cancer N Stroke N Abuse/Domestic Violence N Asthma N Endometriosis N High Cholesterol N Hepatitis N Heart Disease N Fibromyalgia N Pre-Eclampsia N Hypertension N Osteoporosis N Kidney Disease N Gynecological History Statement/Question Response Abnormal Pap N Flow Light Date of LMP 03/12/2020 On BCP's at Conception? N STIs/STDs N HPV Vaccine N Most Recent Mammogram Age at Menarche 14 Current Control Method Seeking Pre gnancy Age at First Child Sexually Active? Y Menses Monthly N Date of Last Pap Smear 03/27/2019 Sexual Problems? N LMP Approximate Desired Control Method None Obstetrics History GPAL:G 0 P 0 0 0 0 Type Value Multiple Births 0 Full Term 0 Induced 0 Spontaneous 0 Premature 0 Living 0 Ectopics 0 Total 0 Past Encounters Encounter ID Performer Location Encounter Start Date Encounter Closed Date Diagnosis/Indication Diagnosis SNOMED-CT Code Diagnosis ICD10 Code Diagnosis Note [id number] MD Tirso Michael (CARPENTRY SPECIALIST) [address] [place] [phone] 02/14/2015 13:51:14 02/14/2015 16:31:12 Gynecologic examination 53752094 Polycystic ovaries 96000345 Venereal d isease screening 554938758 [id number] MD Tirso Michael (CARPENTRY SPECIALIST) [address] [place] [id number] 12/16/2015 15:16:40 12/16/2015 18:22:15 Polycystic ovaries 91236961 E28.2 Infertilit y due to oligospermia 73518065 N46.754 [id number] MD Tirso Michael (CARPENTRY SPECIALIST) [address] [place] [id number] 03/27/2019 16:37:02 03/28/2019 12:39:09 Gynecologic examination 50625132 Z01.419 Exposure t o sexually transmissible disorder 168328351 Z20.2 Infertilit y due to oligospermia 77674751 N46.129 Has 2 frozen embryosBei ng taken care of by fertility specialist Will see patient when [id number] [facility] (Adult Med) [address] [place] [phone] 10/23/2019 08:09:02 11/02/2019 15:02:54 Amenorrhea 85067729 N91.2 LMP 07/24/2019A dmits to a history of irregular menstrual cycles in the past, was started on medication for PCOS at one point by Dr. Garcia he took a test at home a couple weeks ago and it was negative.P regnancy test in the office today is negative- will check serum bHCG- will check hormone levels- will check thyroid- consider restarting PCOS medication s Abdominal pain 36711465 R10.9 Complainin g of episodes of upper abdominal pain, tend to occur after eatingDDX: GERD, GB disease, PUD, h.pylori - will check CMP for other causes- consider additional testing if no improvemen t on PPI and labs normal Gastroesop hageal reflux disease without esophagitis 607749916 K21.9 Complainin g of intermitte nt episodes of upper abdomen pain and bloating.T he pain tends to occur after eating but sometimes even without eating.Sta thalia she used to take a medication for acid reflux in [place] but has been without that medication for years. Admits to a diet full of spicy foods and drinking lemon water frequently .Denies heavy alcohol and drug use.- will start trial on PPI x 3 months- provided her with informatio n regarding GERD supportive care at home Adult the [facility] th examination [id number] Z00.00 Patient not fasting in the office today, will screen for diabetes and check for VIt. D def. per patient request- consider checking lipids at next visit when fasting [id number] SU CHAPPELL (CARPENTRY SPECIALIST) [address] [place] [phone] 07/01/2020 17:11:47 07/08/2020 07:54:47 Polycystic ovary syndrome [id number] E28.2 Oligomenor christiano c/w PCOS. Counseled pt on it. Pt not interested in contracept gilberto as she hopes to still get , following with reproducti ve endocrinol ogy. Advised restarting metformin. Discussed progestin induced bleed at least every 90 days as needed for endometria l protection . RTC in 3 months. Anovulator y amenorrhea [id number] N91.1 Counseled pt on progestin induced bleed. Advised taking daily x 10 days, then dc. Bleeding should occur within 5 days of stopping medication . Repeat every 1-3 months as needed. Health Concerns Section Related Observation LastModified by Organization Detai ls LastModified Time None Recorded Concern Status LastModified by Organization Details LastModified Time None Recorded Advance Directives Directive N: Payers Insurance Date Sequence Insurance Name Policy Number Policy Avila Covered Member ID Avila Member ID Guarantor Name 09/27/2020 1 [facility] [id number] Aura Trent [id number] Brook Trent 07/01/2020 1 [id number] [id number] Brook Trent [id number] Brook Trent Notes Date Note Type Note Provider Name and Address Organization Details Recorded Time 6 text/html InfertilityReported bypatient.Duration:tryin g to conceive for >1 year; 8 years Context:menstrual cycles regular/monthly; regular intercourse; timing intercourse with ovulation; no history of STD/pelvic infection; no past IUD use; no history of endometriosis; no fibroids; no abdominal surgery; no prior infertility; no prior infertility; no sexual dysfunction; no recurrent miscarriage; no history of thyroid dysfunction; no family history of congenital anomalies/chromosomal abnormalities/genetic disorders; history of chicken pox;history of PCO Associated Symptoms:no pelvic pain; no abdominal pain; no dyspareunia; no abnormal bleeding; no premenstrual symptoms CATRACHITO Curiel SILeonardo 12/16/2015 18:20:31 9 text/html Annual GYNReported bypatient.History:no gynecologic complaints; planning in the near future; actively trying to conceive Menstrual cycle:Normal menses Urinary symptoms:No hematuria; No incontinence Vulva:No genital lesion Vagina:Normal vaginal discharge Breast:No breast pain; No breast lump; No nipple discharge Current Contraception:Monogamous relationship Sexual complaints:No sexual complaints; No pain during intercourse; Normal libido Menopausal Symptoms:No menopausal symptoms; Normal vaginal lubrication Psychological symptoms:No depression; No anxiety; No PMDD Preventive measures:Encourage self breast examination; Encourage regular exercise; Encourage no tobacco use VIKTORIA Barba [place] - [facility] 03/28/2019 14:27:10 0 text/html 34 year old female presents today for abdominal pain and bloating x 3-4 months. Complaining of intermittent episodes of upper abdomen pain and bloating. The pain tends to occur after eating but sometimes even without eating. States she used to take a medication for acid reflux in [place] but has been without that medication for years. Admits to a diet full of spicy foods and drinking lemon water frequently. Denies heavy alcohol and drug use. Also concerned because she has not had a menstrual cycle in 3 months. Admits to a history of irregular menstrual cycles in the past, was started on medication for PCOS at one point by Dr. Thao. She took a test at home a couple weeks ago and it was negative. States her and her have been trying to conceive x many years, was seeing a fertility specialist at one point but no longer due to cost. Admits to morning nausea and intermittent constipation. SU STEPHENS Attn: Accounting,[address] [facility], [place], [phone], [facility] [place] 10/23/2019 14:59:17 0 text/html 34yo F with h/o PCOS presents via phone for evaluation of irregular periods. She is a patient of Dr. Thao. She states she hasn't period in 3 months, LMP 03/12/2020. 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 Pt states she has been cramping monthly but not bleeding. She has been on medications for PCOS in the past but has not taken them in awhile. She has been trying to get for years and had followed with fertility specialist for IUI consult. She is not actively trying at this time but does not want control in hopes might happen. SU CHAPPELL Attn: Accounting,[address] [facility], [place], [phone], [facility] [place] 07/01/2020 18:19:59 OBGyn Episode No OBEpisode recorded.
[2025-01-22 11:40] LABS: Hematocrit 39.8 % (37.0-47.0); Hemoglobin 13.2 g/dL (12.0-15.0); Immature Granulocyte Percent A 0.3 % (0-0.5); Lymphocytes Absolute Auto 2.34 K/mm3 (0.9-3.2); Mean Corpuscular HGB Conc 33.2 g/dl (32-36); Mean Corpuscular Hemoglobin 28.1 pg (26-34); Mean Corpuscular Volume 84.9 fl (80-100); Nucleated Red Blood Cells Absolute Auto 0.000 K/mm3 (0.0-0.012); Nucleated Red Blood Cells Perc 0.0 % (0.0-0.2); Platelet Count Result 256 k/mm3 (150-375); Red Blood Count 4.69 M/mm3 (4.2-5.4); White Blood Count 6.2 K/mm3 (4.5-10.0)
[2025-01-22 11:59] LABS: Alanine Aminotransferase 37 U/L (6-35); Albumin Level 4.4 g/dL (3.5-5.1); Alkaline Phosphatase 100 U/L (38-126); Anion Gap 9 mmol/L (4-12); Aspartate Amino Transferase 39 U/L (14-36); Bilirubin,Total 0.4 mg/dL (0.2-1.3); Blood Urea Nitrogen 9 mg/dL (7-17); CRP 1.0 mg/dL (<1.0); Calcium 9.1 mg/dL (8.4-10.2); Carbon Dioxide 25 mmol/L (22-30); Chloride 104 mmol/L (98-107); Estimated Glomerular Filt Rate > 60; Glucose 92 mg/dL (65-110); Potassium 3.9 mmol/L (3.4-5.0); Sodium 138 mmol/L (137-145); Total Protein 8.4 g/dL (6.3-8.2); Uric Acid 6.6 mg/dL (2.5-7.5)
[2025-01-22 12:14] LABS: Add Urine Microscopic? YES; Appearance Urine Clear (Clear); Glucose Urine UA Negative (Negative); Leukocyte Esterase Ur Trace LEU/UL (Negative); Nitrate Urine Negative (Negative); Non Pathogenic Casts 0-2; Specific Grav Ur 1.009 (1.001-1.035)
[2025-01-22 12:30] LABS: Hepatitis B Surface Antigen Negative (Negative)
[2025-01-22 12:33] LABS: Thyroid Stimulating Hormone 1.870 uIU/mL (0.465-4.680)
[2025-01-22 12:36] LABS: HAV RESULT Negative (Negative); Hepatitis B Core IgM Result Negative (Negative)
[2025-01-22 12:48] LABS: Hepatitis B Surface Anti Res Negative
[2025-01-23 13:09] LABS: Anti-CCP Ab, IgG/IgA >250 units (0-19); EBV Nuclear Antigen Ab, IgG >600.0 U/mL (0.0-17.9)
[2025-01-25 13:08] LABS: Parvovirus B19, IgG 5.1 index (0.0-0.8); Parvovirus B19, IgM 0.1 index (0.0-0.8)
== END 2025-01-22 10:28 | disposition home or self-care (01) ==
PROVIDERS: Visit Provider Internal Medicine
DX: M13.80 Other specified arthritis, unspecified site (principal); E55.9 Vitamin D deficiency, unspecified
CPT/HCPCS: 36415; 73120; 73620; 80053; 80069; 80074; 81001; 82306; 84443; 84550; 85025; 85652; 86140; 86200; 86235; 86430; 86480; 86664; 86665; 86706; 86747

== ENCOUNTER 2025-02-10 08:04 | Outpatient (CLI) | payer OTHER, SELFPAY ==
--- NOTE | ~2025-02-10 | XR_ITS ---
EXAMINATION: XR chest 2V Exam Date/Time: 02/10/2025 8:29 CDT HISTORY: respiratory tuberculosis unspecified Comparison: None. RESULT: Lines, tubes, and devices: None. Lungs and pleura: Clear. Cardiomediastinal silhouette: Normal. Other: No acute osseous or upper abdominal finding. IMPRESSION: No acute cardiopulmonary process. Reviewed, dictated and finalized at location K.
[2025-02-13 14:08] LABS: Saccharomyces cerevisiae, IgA <20.0 Units (0.0-24.9); Saccharomyces cerevisiae, IgG <20.0 Units (0.0-24.9)
== END 2025-02-10 08:05 | disposition home or self-care (01) ==
LOC: ANHLAB 08:06
PROVIDERS: PCP Internal Medicine; Visit Provider Internal Medicine
DX: A15.9 Respiratory tuberculosis unspecified (principal); M13.80 Other specified arthritis, unspecified site; E55.9 Vitamin D deficiency, unspecified
CPT/HCPCS: 71046; 86037; 86671

== ENCOUNTER 2025-03-15 06:49 | Outpatient (CLI) | payer OTHER, SELFPAY ==
[2025-03-15 08:15] LABS: Hematocrit 39.2 % (37.0-47.0); Hemoglobin 12.7 g/dL (12.0-15.0); Immature Granulocyte Percent A 0.1 % (0-0.5); Lymphocytes Absolute Auto 2.35 K/mm3 (0.9-3.2); Mean Corpuscular HGB Conc 32.4 g/dl (32-36); Mean Corpuscular Hemoglobin 27.7 pg (26-34); Mean Corpuscular Volume 85.4 fl (80-100); Nucleated Red Blood Cells Absolute Auto 0.000 K/mm3 (0.0-0.012); Nucleated Red Blood Cells Perc 0.0 % (0.0-0.2); Platelet Count Result 253 k/mm3 (150-375); Red Blood Count 4.59 M/mm3 (4.2-5.4); White Blood Count 7.0 K/mm3 (4.5-10.0)
[2025-03-15 08:51] LABS: Alanine Aminotransferase 30 U/L (6-35); Albumin Level 4.4 g/dL (3.5-5.1); Alkaline Phosphatase 107 U/L (38-126); Anion Gap 11 mmol/L (4-12); Aspartate Amino Transferase 35 U/L (14-36); Bilirubin,Total 0.5 mg/dL (0.2-1.3); Blood Urea Nitrogen 14 mg/dL (7-17); CRP 1.3 mg/dL (<1.0); Calcium 9.2 mg/dL (8.4-10.2); Carbon Dioxide 26 mmol/L (22-30); Chloride 102 mmol/L (98-107); Estimated Glomerular Filt Rate > 60; Glucose 90 mg/dL (65-110); Potassium 3.9 mmol/L (3.4-5.0); Sodium 139 mmol/L (137-145); Total Protein 8.4 g/dL (6.3-8.2)
[2025-03-15 09:43] LABS: Add Urine Microscopic? YES; Appearance Urine Clear (Clear); Glucose Urine UA Negative (Negative); Leukocyte Esterase Ur Trace LEU/UL (Negative); Need Manual Microscopic Reviewed; Nitrate Urine Negative (Negative); Non Pathogenic Casts 0-2; Specific Grav Ur 1.018 (1.001-1.035)
== END 2025-03-15 06:50 | disposition home or self-care (01) ==
LOC: ANHLAB 06:51
PROVIDERS: PCP Internal Medicine; Visit Provider Internal Medicine
DX: M06.9 Rheumatoid arthritis, unspecified (principal)
CPT/HCPCS: 36415; 80053; 81001; 84100; 85025; 85652; 86140